=== PATIENT | female | born 1990 | race American Indian/Alaskan Native ===

== ENCOUNTER 2016-10-22 22:44 | Emergency (ER) | payer OTHER ==
--- NOTE | 2016-10-23 04:09 | XRay Report ---
FINAL REPORT PROCEDURE: XR CHEST ROUTINE 2V TECHNIQUE: PA and lateral chest radiographs were obtained. CPT 97839 HISTORY: productive cough x 3 weeks COMPARISON: No prior studies are available for comparison. FINDINGS: Heart: Normal. Mediastinum/Vessels: Normal. Lungs/Pleural space: Mild infiltrate left hilar region. No effusion or pneumothorax. Bony thorax: No acute osseous abnormality. Other: IMPRESSION: Mild infiltrate in the left hilar region..
--- NOTE | 2016-10-23 04:26 | Emergency Department Report ---
HPI - General Chief Complaint: Upper Respiratory Infection Time Seen by Provider: 10/23/16 03:20 - HPI HPI: 25-year-old female presents today with productive cough 3 weeks. Positive for yellow sputum. Patient also complaining of cough associated headache and chest discomfort. Positive for nasal congestion. Tried Mucinex with temporary relief and TheraFlu and Tylenol with some relief. Denies sick contacts. Denies fever, chills, nausea, vomiting, chest pain, shortness of breath, abdominal pain. ED Past Medical Hx - Past Medical History Previous Medical History?: Yes Additional medical history: Infection after last - Surgical History Past Surgical History?: Yes Additional Surgical History: 3 C-sections, Leep procedure - Social History Smoking Status: Never Smoker Substance Use Type: Alcohol - Medications Home Medications: Home Medications Medication Instructions Recorded Confirmed Last Taken Type Cyclobenzaprine [Flexeril 10 MG 10 mg PO Q8H PRN #21 tablet 04/27/15 Unknown Rx TAB] Diclofenac Dr [Voltaren Dr] 75 mg PO Q12H #20 tablet 04/27/15 Unknown Rx Azithromycin [Zithromax Z-JORDAN] 250 mg PO QDAY #6 tablet 10/23/16 Unknown Rx Promethazine Dm [Phenergan DM 5 ml PO Q6H PRN #1 bottle 10/23/16 Unknown Rx 6.25-15 mg/5 ml] ED Review of Systems ROS: Stated complaint: COUGH Other details as noted in HPI Constitutional: denies: chills, fever, malaise Eyes: denies: eye pain ENT: congestion. denies: ear pain, throat pain Respiratory: cough. denies: shortness of breath, wheezing Cardiovascular: denies: chest pain, palpitations Endocrine: no symptoms reported Gastrointestinal: denies: abdominal pain, nausea, vomiting Neurological: headache. denies: weakness Physical Exam - Physical Exam Vital Signs: Vital Signs 10/22/16 23:42 Temperature 98.1 F Pulse Rate 92 H Respiratory 20 Rate Blood Pressure 122/75 O2 Sat by Pulse 98 Oximetry Physical Exam: GENERAL: The patient is well-developed and well-nourished. Patient is in NAD. HEAD: Normocephalic. Atraumatic. EYES: PERRL. EARS: External auditory canals and tympanic membranes clear; hearing grossly intact. NOSE: Normal nasal mucosa with no nasal discharge. THROAT: Minimal erythema. No swelling or exudates. NECK: Supple, nontender, without lymphadenopathy. CHEST/LUNGS: Clear to auscultation throughout. HEART/CARDIOVASCULAR: Regular rate and rhythm. No murmurs, rubs or gallops. ABDOMEN: Abdomen is soft, nontender. No guarding or rebound tenderness. EXTREMITIES: Peripheral pulses intact. Capillary refill less than 2 seconds. NEURO: Alert and oriented x 3. Normal gait. ED Course Vital Signs 10/22/16 23:42 Temperature 98.1 F Pulse Rate 92 H Respiratory 20 Rate Blood Pressure 122/75 O2 Sat by Pulse 98 Oximetry ED Medical Decision Making - Lab Data Vital Signs 10/22/16 23:42 Temperature 98.1 F Pulse Rate 92 H Respiratory 20 Rate Blood Pressure 122/75 O2 Sat by Pulse 98 Oximetry - Radiology Data Radiology results: report reviewed Chest x-ray: Normal heart, mediastinum, vessels. No acute osseous abnormality. Mild infiltrate of left hilar region. No effusion or pneumothorax. - Medical Decision Making 25-year-old female presents today with productive cough 3 weeks. Her chest x- ray results reveal mild infiltrate left hilar region. Consulted with Dr. Gray. Patient is in no acute distress at this time. She will be discharged home and is encouraged to follow up with a primary care provider. She will be sent home on Azithromycin and promethazine DM and is encouraged to return to the emergency room for any worsening symptoms. Critical care attestation.: If time is entered above; I have spent that time in minutes in the direct care of this critically ill patient, excluding procedure time. ED Disposition Clinical Impression: Pneumonia Qualifiers: Pneumonia type: due to unspecified organism Laterality: left Lung location: unspecified part of lung Qualified Code(s): J18.9 - Pneumonia, unspecified organism Disposition: DISCHARGED TO HOME OR SELFCARE Is pt being admited?: No Does the pt Need Aspirin: No Condition: Stable Instructions: Community-acquired Pneumonia (ED), Bacterial Pneumonia (ED) Additional Instructions: Follow-up with primary care provider. Return to the emergency department if symptoms worsen. Prescriptions: Azithromycin [Zithromax Z-JORDAN] 250 mg PO QDAY #6 tablet Promethazine Dm [Phenergan DM 6.25-15 mg/5 ml] 5 ml PO Q6H PRN #1 bottle PRN Reason: Cough Referrals: PRIMARY CARE, [Primary Care Provider] - 3-5 Days [facility] [Outside] - 3-5 Days Forms: Work/School Release Form(ED) Time of Disposition: 04:31
[2016-10-23 04:52] VITALS: BP 108/73
== END 2016-10-23 04:54 | disposition home or self-care (01) ==
LOC: ED 22:44
DX: J18.9 Pneumonia, unspecified organism (principal); R51 Headache
CPT/HCPCS: 71020